=== PATIENT | male | born 1945 | race Caucasian/White ===

== ENCOUNTER 2020-07-18 06:23 | Day surgery (SDC) | payer MEDICARE, OTHER ==
[2020-07-12 11:15] VITALS: BMI 38.0
--- NOTE | 2020-07-17 17:29 | P.GSHP ---
History of Present Illness H&P Date: 07/17/20 Chief Complaint: Prostate cancer The patient is a 74-year-old white male with recently diagnosed prostate cancer. His prostate volume is 111 mL. His PSA level is 7.16. He underwent a TURP in 2013. 2 of 12 biopsies showed Ana Luisa 7 (3+4) adenocarcinoma. He has elected to be treated with radiation therapy. He will undergo SpaceOAR implant to decrease the likelihood of rectal toxicity. - Genitourinary (Male) Genitourinary: Reports urinary frequency Past Medical History Past Medical History: Cancer, GERD/Reflux, Hypertension, Osteoarthritis (OA), Prostate Disorder, Sleep Apnea/CPAP/BIPAP Additional Past Medical History / Comment(s): constipation, kidney stones, prostate cancer History of Any Multi-Drug Resistant Organisms: None Reported Past Surgical History: Cholecystectomy, Hernia Repair, Orthopedic Surgery, Prostate Surgery, Tonsillectomy Additional Past Surgical History / Comment(s): cyst removed from back, rt shoulder rotator cuff, TURP Past Anesthesia/Blood Transfusion Reactions: No Reported Reaction Smoking Status: Former smoker - Past Family History Brother(s) Family Medical History: Cancer Additional Family Medical History / Comment(s): skin Medications and Allergies Home Medications Medication Instructions Recorded Confirmed Type Aspirin [Adult Low Dose Aspirin EC] 81 mg PO DAILY 07/12/20 07/12/20 History Cholecalciferol [Vitamin D3 (25 25 mcg PO PC-SUPPER 07/12/20 07/12/20 History Mcg = 1000 Iu)] Fiberall 15 gm PO PC-SUPPER 07/12/20 07/12/20 History Hydrochlorothiazide 12.5 mg PO QAM 07/12/20 07/12/20 History [hydroCHLOROthiazide] Multivitamins, Thera [Multivitamin 1 tab PO BID 07/12/20 07/12/20 History (formulary)] Olmesartan [Benicar] 20 mg PO PC-SUPPER 07/12/20 07/12/20 History [place]-3 Fatty Acids/Fish Oil [Fish 1 each PO PC-SUPPER 07/12/20 07/12/20 History Oil 1,000 mg Softgel] Allergies Allergy/AdvReac Type Severity Reaction Status Date / Time adhesive tape Allergy rash,blisters,skin Verified 07/12/20 11:02 pulls off Surgical - Exam - General well developed, well nourished, no distress - Respiratory normal respiratory effort - Abdomen Abdomen: soft, non tender, no guarding, no rigid, no rebound - Genitourinary normal penis with no external lesions, testicles non-tender, other (Multiple left scrotal sebaceous cysts) - Rectum Rectum: normal sphincter tone, no masses, other (The prostate is enlarged with right-sided firmness.) - Psychiatric oriented to time, oriented to person, oriented to place, speech is normal, memory intact Assessment and Plan (1) Malignant neoplasm of prostate Status: Acute Code(s): C61 - MALIGNANT NEOPLASM OF PROSTATE SNOMED Code(s): 297337315 Plan: The SpaceOar implant has been reviewed in detail with the patient. He understands that the rationale for this is to create separation between the prostate and rectum, thus reducing the risk of radiation proctitis. The material begins to breakdown 12-13 weeks following implant, and is reabsorbed by the body. Risks include anesthesia, bleeding, infection, and perineal discomfort. He understands that if the rectal wall is perforated the procedure will need to be aborted.
[~2020-07-18 06:23] MED LIST: DEXAMETHASONE SOD PHOSPHATE 4 MG/ML 1 ML VIAL IV ONE; LACTATED RINGERS 1,000 ML IV SCH; LIDOCAINE 1% (10MG/ML) FOR IV START INTRADERMA PRN; ONDANSETRON 4 MG/2 ML VIAL IVP ONE
[2020-07-18 06:48] VITALS: RESP 16; TEMP 98
[2020-07-18] MEDS ORDERED: ONDANSETRON 4 MG/2 ML VIAL ONE (07:03)
[2020-07-18] MEDS ORDERED: MIDAZOLAM 2 MG/2 ML VIAL ONE (07:32)
[2020-07-18] MEDS ORDERED: KETAMINE 10 MG/ML 20 ML VIAL ONE (07:32)
[2020-07-18] MEDS ORDERED: PROPOFOL 10 MG/ML 20 ML VIAL IV ONE (07:32)
[2020-07-18] MEDS ORDERED: fentaNYL (PF) 50 MCG/ML 2 ML AMP ONE (07:32)
[2020-07-18] MEDS ORDERED: LIDOCAINE 2% (PF) 20 MG/ML 5 ML VIAL SQ ONE ×3 (07:52→08:00)
--- NOTE | 2020-07-18 08:21 | P.OP ---
Date of Procedure: 07/18/20 Preoperative Diagnosis: Adenocarcinoma of the Prostate Postoperative Diagnosis: Same Procedure(s) Performed: SpaceOAR Implant Anesthesia: MAC Surgeon: Amador Blackmon Estimated Blood Loss (ml): 5 IV fluids (ml): 300 Pathology: none sent Condition: stable Disposition: PACU Indications for Procedure: The patient is a 74-year-old white male with recently diagnosed prostate cancer. His prostate volume is 111 mL. His PSA level is 7.16. He underwent a TURP in 2013. 2 of 12 biopsies showed Ana Luisa 7 (3+4) adenocarcinoma. He has elected to be treated with radiation therapy. He will undergo SpaceOAR implant to decrease the likelihood of rectal toxicity. Operative Findings: Separation of rectum and prostate achieved. Description of Procedure: The patient was taken to the operating room and placed in the dorsolithotomy position, with his legs supported in Sami stirrups. The external genitalia was prepped and draped sterilely. The Bruel and Kjaer transrectal ultrasound probe was placed intrarectally. The prostate was imaged. The probe was then placed within the stabilizing stand. A spinal needle was advanced under ultrasonic guidance to the level of the urogenital diaphragm, and lidocaine was used to infiltrate the tissues as the needle was withdrawn. Next, the SpaceOAR needle was passed through the midline of the perineum, 1-2 cm anterior to the anal opening. The needle was slowly advanced under ultrasonic guidance until the needle tip was located within the fat plane between the prostate and rectum, at the level of the mid prostate gland. The needle was confirmed to be midline on the axial imaging. A small amount of normal saline was injected for hydrodissection. Next, the SpaceOAR components were mixed and loaded into the Y connector per protocol. The Y connector was then connected to the needle, and the components were injected slowly over a course of approximately 12 seconds. A total of 12 ml was injected. Significant distance was created between the pr ostate and rectum, as desired. It should be noted that at no point was there any concern of rectal perforation. The needle was withdrawn, as well as the transrectal ultrasound probe, and the procedure was terminated. The patient tolerated the procedure well and was taken to the recovery room in stable condition.
[2020-07-18 08:37] VITALS: BP 148/90; PULSE 65
== END 2020-07-18 08:52 | disposition home or self-care (01) ==
LOC: OR 06:23
PROVIDERS: ATTEND Urology
DX: C61 Malignant neoplasm of prostate (principal); K21.9 Gastro-esophageal reflux disease without esophagitis; I10 Essential (primary) hypertension; M19.90 Unspecified osteoarthritis, unspecified site; G47.33 Obstructive sleep apnea (adult) (pediatric); Z99.89 Dependence on other enabling machines and devices; E66.01 Morbid (severe) obesity due to excess calories; Z68.39 Body mass index [BMI] 39.0-39.9, adult; Z87.442 Personal history of urinary calculi; Z90.49 Acquired absence of other specified parts of digestive tract; Z98.890 Other specified postprocedural states; Z90.89 Acquired absence of other organs; Z87.891 Personal history of nicotine dependence; Z80.8 Family history of malignant neoplasm of other organs or systems; Z79.82 Long term (current) use of aspirin; Z79.899 Other long term (current) drug therapy
CPT/HCPCS: 55874; J2250; J1100; J0690; J2405; J3010; J2704; J2001